=== PATIENT | female | born 1995 | race African-American/Black ===

== ENCOUNTER 2016-10-09 12:52 | Emergency (ER) | payer BC, OTHER ==
[~2016-10-09] VITALS: Ht 170.2 cm; Wt 89.4 kg
[2016-10-09 13:44] VITALS: BP 142/72
[2016-10-09] MEDS ORDERED: DIPHTH,PERTUSS(ACELL),TET TOX 0.5 ML DISP.SYRIN. VAX IM ONE (14:30)
[2016-10-09] MEDS ORDERED: LIDOCAINE 1% / SOD BICARB 8.4% 20 ML VIAL. IJ ONE (14:30)
[2016-10-09] MEDS ORDERED: HYDROCODONE/APAP 5/325MG TABLET. PO ONE (14:30)
[2016-10-09] MEDS ORDERED: HYDR-971 PO (15:33)
[2016-10-09] MEDS ORDERED: CLIN-44 PO (15:33)
--- NOTE | 2016-10-09 15:33 | PHYS DOC ---
Past Medical History Past Medical History: Other Additional Past Medical Histor: MRSA on arms and legs in 2011 Past Surgical History: Tonsillectomy, Other Additional Past Surgical Histo: "Surgery on my MRSA." Alcohol Use: None Drug Use: None Adult General Chief Complaint Chief Complaint: ABSCESS HPI HPI Patient is a 20 year old female with history of abscesses who presents today with a left axillary abscess for 2 weeks. Patient states it started draining today. Denies any fever. Review of Systems Review of Systems Constitutional: Denies fever or chills [] Eyes: Denies change in visual acuity, redness, or eye pain [] HENT: Denies nasal congestion or sore throat [] Musculoskeletal: Denies back pain or joint pain [] Integument: left axillary abscess Neurologic: Denies headache, focal weakness or sensory changes [] Endocrine: Denies polyuria or polydipsia [] Current Medications Current Medications Current Medications Medications (Trade) Dose Ordered Sig/Norberto Start Time Stop Time Status Last Admin Dose Admin Acetaminophen/ Hydrocodone Bitart (Lortab 5/325) 2 tab 1X ONCE 10/09/16 14:30 10/09/16 14:32 DC 10/09/16 14:39 2 TAB Diphtheria/ Tetanus/Acell Pertussis (Boostrix) 0.5 ml ONCE ONCE 10/09/16 14:30 10/09/16 14:32 DC 10/09/16 14:40 0.5 ML Lidocaine/Sodium Bicarbonate (Buffered Lidocaine 1%) 20 ml 1X ONCE 10/09/16 14:30 10/09/16 14:32 DC 10/09/16 14:41 20 ML Allergies Allergies Allergies Coded Allergies Type Severity Reaction Last Updated Verified No Known Drug Allergies 10/09/16 No Physical Exam Physical Exam Constitutional: Well developed, well nourished, no acute distress, non-toxic appearance. [] HENT: Normocephalic, atraumatic, bilateral external ears normal, oropharynx moist, no oral exudates, nose normal. [] Eyes: PERRLA, EOMI, conjunctiva normal, no discharge. [] Skin: left axilla with an abscess approximately 3 x 2 cm. The area is warm tender to touch, fluctuant and draining Back: No tenderness, no CVA tenderness. [] Extremities: No tenderness, no cyanosis, no clubbing, ROM intact, no edema. [] Neurologic: Alert and oriented X 3, normal motor function, normal sensory function, no focal deficits noted. [] Psychologic: Affect normal, judgement normal, mood normal. [] Current Patient Data Vital Signs Vital Signs Date Time Temp Pulse Resp B/P Pulse Ox O2 Delivery O2 Flow Rate FiO2 10/09/16 13:44 98.8 95 18 100 Room Air 98.8 EKG EKG [] Radiology/Procedures Radiology/Procedures Indication: left axilla abscess Procedure: The patient was positioned appropriately. Local anesthesia was 1% of buffered lidocaine. An incision with 11 blade was then made over the apex of the lesion and large amount of yellow purulent bloody material was expressed. The drainage cavity was irrigated and packed with sterile gauze. The patients tetanus status updated as needed. The patient tolerated the procedure well. Complications: none.[] Course & Med Decision Making Course & Med Decision Making Pertinent Labs and Imaging studies reviewed. (See chart for details) Patient has left axilla abscess which was drained as noted in procedures. The abscess was packed. Tetanus was updated. Discharged with clindamycin. Follow-up with the ED in 2 days for wound check. Dragon Disclaimer Dragon Disclaimer This electronic medical record was generated, in whole or in part, using a voice recognition dictation system. Departure Departure Impression: Primary Impression: Abscess of axilla, left Disposition: 01 HOME, SELF-CARE Condition: STABLE Referrals: NO PCP (PCP) Follow-up with the ED in 2 days for wound check Patient Instructions: Abscess, [id number] Additional Instructions: You have an abscess to the left axilla which was drained. We did put packing in the abscess. Come back in 2 days and will take the packing out. Take antibiotics as prescribed. Come back to the ED at any point symptoms worsen especially if you have a fever. Scripts Hydrocodone/Apap 5-325 ([place] 5-325 Tablet)1 Each Tablet1-2 Tab PO Q4-6HRS #20 TAB Prov:BJ FELIPE APRN 10/09/16 Clindamycin Hcl 150 Mg Capsule3 Cap PO TID #90 CAP Prov:BJ FELIPE APRN 10/09/16 BJ FELIPE APRN Oct 09, 2016 15:33
== END 2016-10-09 15:42 | disposition home or self-care (01) ==
LOC: ER 12:52
DX: L02.412 Cutaneous abscess of left axilla (principal); Z86.14 Personal history of Methicillin resistant Staphylococcus aureus infection; Z98.890 Other specified postprocedural states
CPT/HCPCS: 10060; 90471; 90715; 99283-25

== ENCOUNTER 2018-09-22 11:16 | Emergency (ER) | payer BC, OTHER ==
[~2018-09-22] VITALS: Ht 170.2 cm; Wt 104.3 kg
[~2018-09-22 11:16] MED LIST: CLIN150C14 PO; HYDR-3164 PO
[2018-09-22 11:52] VITALS: BP 126/78
[2018-09-22] MEDS ORDERED: SULF1TAB24 PO (12:08)
--- NOTE | 2018-09-22 12:09 | PHYS DOC ---
Past Medical History Past Medical History: Other Additional Past Medical Histor: MRSA on arms and legs in 2011, HS Past Surgical History: Tonsillectomy, Other Additional Past Surgical Histo: "Surgery on my MRSA." Alcohol Use: None Drug Use: None Adult General Chief Complaint Chief Complaint: ABSCESS HPI HPI Patient is a 22 year old female who presents with an abscess to left axilla that has been worsening x 2 days. She has a history of hidradenitis suppurativa. She denies fever, nausea or vomiting. Review of Systems Review of Systems Constitutional: Denies fever or chills [] Respiratory: Denies cough or shortness of breath [] Cardiovascular: No additional information not addressed in HPI [] GI: Denies abdominal pain, nausea, vomiting, bloody stools or diarrhea [] : Denies dysuria or hematuria [] Musculoskeletal: Denies back pain or joint pain [] Integument: See HPI Neurologic: Denies headache, focal weakness or sensory changes [] Endocrine: Denies polyuria or polydipsia [] All other systems were reviewed and found to be within normal limits, except as documented in this note. Allergies Allergies Allergies Coded Allergies Type Severity Reaction Last Updated Verified No Known Drug Allergies 10/09/16 No Physical Exam Physical Exam Constitutional: Well developed, well nourished, no acute distress, non-toxic appearance. [] Cardiovascular:Heart rate regular rhythm, no murmur [] Lungs & Thorax: Bilateral breath sounds clear to auscultation [] Abdomen: Bowel sounds normal, soft, no tenderness, no masses, no pulsatile ma sses. [] Skin: 1 cm area of induration to left axilla, no fluctuance Back: No tenderness, no CVA tenderness. [] Extremities: No tenderness, no cyanosis, no clubbing, ROM intact, no edema. [] Neurologic: Alert and oriented X 3, normal motor function, normal sensory function, no focal deficits noted. [] Psychologic: Affect normal, judgement normal, mood normal. [] Current Patient Data Vital Signs EKG EKG [] Radiology/Procedures Radiology/Procedures [] Course & Med Decision Making Course & Med Decision Making Pertinent Labs and Imaging studies reviewed. (See chart for details) [] Dragon Disclaimer Dragon Disclaimer This electronic medical record was generated, in whole or in part, using a voice recognition dictation system. Departure Departure Impression: Primary Impression: Abscess of axilla, left Disposition: 01 HOME, SELF-CARE Condition: STABLE Referrals: NO PCP (PCP) Patient Instructions: Abscess Additional Instructions: Take the medication as directed. Pump and dump your breast milk while on this medication. Follow-up with your primary care provider in one week if not improving or return to the emergency department if worsening. Use hot compresses multiple times daily to encourage drainage. Scripts Sulfamethoxazole/Trimethoprim (BACTRIM DS TABLET) 1 Each Tablet 1 TAB PO BID for abscess, #20 TAB Prov: REJI FOY APRN 09/22/18 REJI FOY APRN Sep 22, 2018 12:09
== END 2018-09-22 12:18 | disposition home or self-care (01) ==
LOC: ER 11:16
DX: L02.412 Cutaneous abscess of left axilla (principal); Z90.89 Acquired absence of other organs
CPT/HCPCS: 99283

== ENCOUNTER 2019-09-08 17:33 | Emergency (ER) | payer BC ==
[~2019-09-08] VITALS: Ht 170.2 cm; Wt 111.0 kg
[~2019-09-08 17:33] MED LIST changes: +SULF1TAB24 PO
[2019-09-08 17:55] VITALS: BP 120/66
--- NOTE | 2019-09-08 18:07 | PHYS DOC ---
Past Medical History Past Medical History: Other Additional Past Medical Histor: MRSA on arms and legs in 2011, HS Past Surgical History: Tonsillectomy, Other Additional Past Surgical Histo: "Surgery on my MRSA." Smoking Status: Light Tobacco Smoker Alcohol Use: None Drug Use: None Adult General Chief Complaint Chief Complaint: ABDOMINAL PAIN HPI HPI Patient is a 23 year old AA female who presents to the emergency department with complaints of pelvic pain, bilateral low back pain, dysuria, increased urinary frequency, and irregular light brown vaginal discharge. She states that the vaginal discharge began 5 days ago and her urinary symptoms began a week ago. She denies any vomiting, hematuria, cough, shortness of breath, wheezing, or headache. Patient states she has had nausea and had one episode of diarrhea earlier today. She states that her lower abdomen feels like it is bloated. Patient reports having chills but denies having any fever. She currently rates her pain a 6 out of 10 on the pain scale, she denies any alleviating factors. Patient reports that her last menstrual cycle was on August 242019. Review of Systems Review of Systems Complete ROS is negative unless otherwise noted in HPI. Allergies Allergies Allergies Coded Allergies Type Severity Reaction Last Updated Verified No Known Drug Allergies 10/09/16 No Physical Exam Physical Exam See Above Constitutional: Well developed, well nourished, no acute distress, non-toxic appearance, obese. [] HENT: Normocephalic, atraumatic, bilateral external ears normal, nose normal. [] Eyes: PERRLA, EOMI, conjunctiva normal, no discharge. [] Neck: Normal range of motion, no stridor. 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 Back: No tenderness Extremities: No cyanosis, ROM intact, no edema. Neurologic: Alert and oriented X 3, no focal deficits noted. Psychologic: Affect normal, judgement normal, mood normal. Current Patient Data Vital Signs Vital Signs Date Time Temp Pulse Resp B/P (MAP) Pulse Ox O2 Delivery O2 Flow Rate FiO2 09/08/19 17:55 98.4 108 16 120/66 (84) 99 Room Air 98.4 Lab Values Laboratory Tests Test 09/08/19 17:55 09/08/19 18:01 Urine Collection Type Unknown Urine Color [place] Urine Clarity Clear Urine pH 6.5 (<5.0-8.0) Urine Specific [place] 1.020 (1.000-1.030) Urine Protein Negative mg/dL (NEG-TRACE) Urine Glucose (UA) Negative mg/dL (NEG) Urine Ketones (Stick) Negative mg/dL (NEG) Urine Blood Negative (NEG) Urine Nitrite Positive (NEG) Urine Bilirubin Negative (NEG) Urine Urobilinogen Dipstick 1.0 mg/dL (0.2 mg/dL) Urine Leukocyte Esterase Small (NEG) Urine RBC 0 /HPF (0-2) Urine WBC 1-4 /HPF (0-4) Urine Squamous Epithelial Cells Mod /LPF Urine Bacteria 0 /HPF (0-FEW) Urine Mucus Slight /LPF POC Urine HCG, Qualitative Hcg negative (Negative) Microbiology 09/08/19 Wet Prep - Final, Complete EKG EKG [] Radiology/Procedures Radiology/Procedures [] Course & Med Decision Making Course & Med Decision Making Pertinent Labs and Imaging studies reviewed. (See chart for details) Patient is a 23-year-old female who presented with complaints of irregular vaginal discharge, dysuria, increased urinary frequency, and suprapubic pain. UA was positive for nitrites, wet mount was concerning for bacterial vaginosis. Patient was given prescriptions for Keflex and Flagyl. Abdomen was soft and nontender on exam, patient declined blood work. Patient was encouraged to follow-up with her primary care doctor if symptoms persist, return to the ER if symptoms worsen or she develops a fever. Patient verbalized an understanding of home care, medications, follow-up, and return to ED instructions and was in agreement with the plan of care. [] Dragon Disclaimer Dragon Disclaimer This electronic medical record was generated, in whole or in part, using a voice recognition dictation system. Departure Departure Impression: Primary Impression: UTI (urinary tract infection) Additional Impression: Bacterial vaginosis Disposition: HOME, SELF-CARE Condition: STABLE Referrals: ANASTASIIA PHILLIP MD (PCP) Patient Instructions: Bacterial Vaginosis, [id number], Urinary Tract Infection, [id number] Additional Instructions: Fill prescription(s) and use as directed. Avoid bladder irritants such as caffeine, carbonation, and spicy foods. Increase clear fluids. Gonorrhea and chlamydia test results are pending. Follow-up with your primary care doctor if symptoms persist, return to ER symptoms worsen. Scripts Metronidazole (FLAGYL) 500 Mg Tablet 1 TAB PO BID, #14 TAB 0 Refills Prov: ZIYAD AGUIRRE APRN 09/08/19 Cephalexin (KEFLEX) 500 Mg Capsule 500 MG PO BID for 7 Days, #14 CAP 0 Refills Prov: ZIYAD AGUIRRE APRN 09/08/19 Problem Qualifiers Primary Impression: UTI (urinary tract infection) Urinary tract infection type: site unspecified Hematuria presence: without hematuria Qualified Codes: N39.0 - Urinary tract infection, site not specified ZIYAD AGUIRRE APRN Sep 08, 2019 18:06
[2019-09-08 18:28] LABS: BILIRUBIN,URINE NEGATIVE (NEG); CLARITY,URINE CLEAR; COLOR,URINE AMBER; NITRITE,URINE POSITIVE (NEG); PH,URINE 6.5 (<5.0-8.0); PROTEIN,URINE NEGATIVE (NEG-TRACE)
[2019-09-08 18:43] LABS: BACTERIA,URINE 0 /HPF (0-FEW); RBC,URINE 0 /HPF (0-2); SQUAMOUS EPITHELIAL CELL,UR MOD /LPF
[2019-09-08] MEDS ORDERED: CEPH-264 PO (19:16)
[2019-09-08] MEDS ORDERED: METR500T PO (19:16)
[2019-09-12 13:11] LABS: GC PROBE Negative (Negative)
== END 2019-09-08 19:22 | disposition home or self-care (01) ==
LOC: ER 17:33
DX: N39.0 Urinary tract infection, site not specified (principal); N76.0 Acute vaginitis; R11.0 Nausea; R19.7 Diarrhea, unspecified; M54.5 Low back pain; R10.2 Pelvic and perineal pain; F17.200 Nicotine dependence, unspecified, uncomplicated; Z90.89 Acquired absence of other organs; Z98.890 Other specified postprocedural states
CPT/HCPCS: 81001; 81025; 87086; 87491; 87591; 99284; Q0111

== ENCOUNTER 2020-01-15 12:28 | Emergency (ER) | payer BC ==
[~2020-01-15] VITALS: Ht 170.2 cm; Wt 110.0 kg
[~2020-01-15 12:28] MED LIST changes: +CEPH-264 PO; +METR500T PO
[2020-01-15 13:01] VITALS: BP 166/86
[2020-01-15] MEDS ORDERED: LIDOCAINE 1%/EPI 1:100,000 20 ML VIAL. SQ ONE (14:30)
[2020-01-15] MEDS ORDERED: HYDROcodone/APAP 5/325MG 1 TAB TABLET PO ONE (14:30)
[2020-01-15] MEDS ORDERED: CLIN150C14 PO (15:29)
[2020-01-15] MEDS ORDERED: HYDR-2761 PO (15:29)
--- NOTE | 2020-01-15 15:30 | PHYS DOC ---
Past Medical History Past Medical History: Other Additional Past Medical Histor: MRSA on arms and legs in 2011, HS Past Surgical History: Tonsillectomy, Other Additional Past Surgical Histo: "Surgery on my MRSA." Smoking Status: Current Every Day Smoker Alcohol Use: Occasionally Drug Use: None General Adult EDM: Chief Complaint: ABSCESS HPI: HPI: Patient is a 24 year old AA female, accompanied by her sister, who presents to the emergency department with complaints of pressure and pain at the top of her gluteal cleft for the last 4 days. Patient reports a history of pilonidal abscesses. She states that the area has been draining foul-smelling pus for the last 2 days and she is concerned that another abscess has developed. She denies any fever, abdominal pain, nausea, vomiting, diarrhea, or injury. She currently rates the pain a 7 out of 10 on the pain scale, the pain increases with sitting and pressure she denies radiation of the pain. Review of Systems: Review of Systems: Constitutional: Denies fever or chills. [] GI: Denies abdominal pain, nausea, vomiting, bloody stools or diarrhea. [] : Denies dysuria. [] Musculoskeletal: Denies back pain or joint pain. [] Integument: See HPI Neurologic: Denies headache Psychiatric: Denies depression or anxiety. [] Heart Score: Risk Factors: Risk Factors: DM, Current or recent (<one month) smoker, HTN, HLP, family history of CAD, obesity. Risk Scores: Score 0 - 3: 2.5% MACE over next 6 weeks - Discharge Home Score 4 - 6: 20.3% MACE over next 6 weeks - Admit for Clinical Observation Score 7 - 10: 72.7% MACE over next 6 weeks - Early Invasive Strategies Current Medications: Current Medications Medications (Trade) Dose Ordered Sig/Norberto Start Time Stop Time Status Last Admin Dose Admin Acetaminophen/ Hydrocodone Bitart (Lortab 5/325) 1 tab 1X ONCE 01/15/20 14:30 01/15/20 14:31 DC 01/15/20 14:52 1 TAB Lidocaine/ Epinephrine (LIDOCAINE 1%-EPI 1:100,000 Multi-Dose) 20 ml 1X ONCE 01/15/20 14:30 01/15/20 14:31 DC Allergies: Allergies: Allergies Coded Allergies Type Severity Reaction Last Updated Verified No Known Drug Allergies 10/09/16 No Physical Exam: PE: Constitutional: Well developed, well nourished, no acute distress, non-toxic appearance. [] HENT: Normocephalic, atraumatic, bilateral external ears normal, oropharynx moist, no oral exudates, nose normal. [] Eyes: PERRLA, EOMI, conjunctiva normal, no discharge. [] Neck: Normal range of motion, no tenderness, supple, no stridor. [] Cardiovascular:Heart rate regular rhythm, no murmur [] Lungs & Thorax: Bilateral breath sounds clear to auscultation [] Abdomen: Bowel sounds normal, soft, no tenderness, no masses, no pulsatile masses. [] Skin: Warm, dry, no erythema, no rash. [] Back: No tenderness, no CVA tenderness. [] Extremities: No tenderness, no cyanosis, no clubbing, ROM intact, no edema. [] Neurologic: Alert and oriented X 3, normal motor function, normal sensory function, no focal deficits noted. [] Psychologic: Affect normal, judgement normal, mood normal. [] Current Patient Data: Vital Signs: Vital Signs Date Time Temp Pulse Resp B/P (MAP) Pulse Ox O2 Delivery O2 Flow Rate FiO2 01/15/20 13:01 98.6 95 16 166/86 (112) 99 Room Air 98.6 EKG: EKG: [] Radiology/Procedures: Radiology/Procedures: Indication: abscess Procedure: The patient was positioned appropriately. Local anesthesia was 1% lidocaine with epi. An incision was then made over the apex of the lesion using an 11 blade scalpel and a copious amount of foul-smelling purulent drainage was expressed. The drainage cavity was then packed with iodoform gauze. The patient tolerated the procedure well, minimal blood loss Complications: none.[] Course & Med Decision Making: Course & Med Decision Making Pertinent Labs and Imaging studies reviewed. (See chart for details) [] Dragon Disclaimer: Dragon Disclaimer: This electronic medical record was generated, in whole or in part, using a voice recognition dictation system. Departure Departure Impression: Primary Impression: Pilonidal abscess Disposition: 01 HOME, SELF-CARE Condition: STABLE Referrals: DENISE RIZVI MD Patient Instructions: Abscess, Care After, Pilonidal Cyst, Care After Additional Instructions: Fill the prescription(s) and use as directed. You may take tylenol or ibuprofen as needed for pain. Return to the emergency room in 2 days to have the packing removed. Follow up with Dr. Rizvi for further evaluation and treatment of reoccurring problem. Return to the ER sooner if your symptoms worsen. Scripts Hydrocodone Bit/Acetaminophen (HYDROCODONE-APAP 5-325 ) 1 Tab Tablet 1 TAB PO PRN Q6HRS PRN for PAIN for 3 Days, #12 TAB 0 Refills Prov: ZIYAD AGUIRRE APRN 01/15/20 Clindamycin Hcl (CLINDAMYCIN HCL) 150 Mg Capsule 300 MG PO TID for 7 Days, #42 CAP 0 Refills Prov: ZIYAD AGUIRRE APRN 01/15/20 Justicifation of Admission Dx: Justifications for Admission: Justification of Admission Dx: N/A ZIYAD AGUIRRE APRN Jan 15, 2020 15:30
== END 2020-01-15 15:49 | disposition home or self-care (01) ==
LOC: ER 12:28
DX: L05.01 Pilonidal cyst with abscess (principal); Z86.14 Personal history of Methicillin resistant Staphylococcus aureus infection; F17.200 Nicotine dependence, unspecified, uncomplicated
CPT/HCPCS: 10080; 99283; J3490

== ENCOUNTER 2020-01-17 11:00 | Emergency (ER) | payer BC ==
[~2020-01-17] VITALS: Ht 170.2 cm; Wt 109.0 kg
[~2020-01-17 11:00] MED LIST changes: +HYDR-2761 PO
[2020-01-17 12:33] VITALS: BP 127/56
--- NOTE | 2020-01-17 12:44 | PHYS DOC ---
Past Medical History Past Medical History: Other Additional Past Medical Histor: MRSA on arms and legs in 2011, HS Past Surgical History: Tonsillectomy, Other Additional Past Surgical Histo: "Surgery on my MRSA." Smoking Status: Current Every Day Smoker Alcohol Use: Occasionally Drug Use: None General Adult EDM: Chief Complaint: WOUND RECHECK/SUTURE REMOVAL HPI: HPI: Patient is a 24-year-old female who had a recent pilonidal incision and drainage with packing placed. She returns today to have the packing removed. [] Review of Systems: Review of Systems: Constitutional: Denies fever or chills. [] Eyes: Denies change in visual acuity. [] HENT: Denies nasal congestion or sore throat. [] Respiratory: Denies cough or shortness of breath. [] Cardiovascular: Denies chest pain or edema. [] GI: Denies abdominal pain, nausea, vomiting, bloody stools or diarrhea. [] : Denies dysuria. [] Musculoskeletal: Denies back pain or joint pain. [] Integument: Per HPI. [] Neurologic: Denies headache, focal weakness or sensory changes. [] Endocrine: Denies polyuria or polydipsia. [] Lymphatic: Denies swollen glands. [] Psychiatric: Denies depression or anxiety. [] Heart Score: Risk Factors: Risk Factors: DM, Current or recent (<one month) smoker, HTN, HLP, family history of CAD, obesity. Risk Scores: Score 0 - 3: 2.5% MACE over next 6 weeks - Discharge Home Score 4 - 6: 20.3% MACE over next 6 weeks - Admit for Clinical Observation Score 7 - 10: 72.7% MACE over next 6 weeks - Early Invasive Strategies Allergies: Allergies: Allergies Coded Allergies Type Severity Reaction Last Updated Verified No Known Drug Allergies 10/09/16 No Physical Exam: PE: Constitutional: Well developed, well nourished, no acute distress, non-toxic appearance. [] HENT: Normocephalic, atraumatic, bilateral external ears normal, oropharynx moist, no oral exudates, nose normal. [] Eyes: PERRLA, EOMI, conjunctiva normal, no discharge. [] Neck: Normal range of motion, no tenderness, supple, no stridor. [] Cardiovascular:Heart rate regular rhythm, no murmur [] Lungs & Thorax: Bilateral breath sounds clear to auscultation [] Abdomen: Bowel sounds normal, soft, no tenderness, no masses, no pulsatile masses. [] Skin: Surgical wound with packing in place in the superior gluteal cleft. [] Back: No tenderness, no CVA tenderness. [] Extremities: No tenderness, no cyanosis, no clubbing, ROM intact, no edema. [] Neurologic: Alert and oriented X 3, normal motor function, normal sensory function, no focal deficits noted. [] Psychologic: anxious [] EKG: EKG: [] Radiology/Procedures: Radiology/Procedures: [] Course & Med Decision Making: Course & Med Decision Making Pertinent Labs and Imaging studies reviewed. (See chart for details) [Procedure: Packing removal Wound was identified packing was removed without difficulty the wound appears to be healing nicely] Dragon Disclaimer: Dragon Disclaimer: This electronic medical record was generated, in whole or in part, using a voice recognition dictation system. Departure Departure Impression: Primary Impression: Abscess packing removal Disposition: 01 HOME, SELF-CARE Condition: IMPROVED Referrals: ANASTASIIA PHILLIP MD (PCP) Patient Instructions: Abscess, Care After, Pilonidal Cyst, Care After Additional Instructions: Return to the emergency department with any new or concerning symptoms Justicifation of Admission Dx: Justifications for Admission: Justification of Admission Dx: BUDDY Montez DO Jan 17, 2020 12:44
== END 2020-01-17 12:52 | disposition home or self-care (01) ==
LOC: ER 11:00
DX: L05.01 Pilonidal cyst with abscess (principal); F17.200 Nicotine dependence, unspecified, uncomplicated; Z86.14 Personal history of Methicillin resistant Staphylococcus aureus infection; Z98.890 Other specified postprocedural states
CPT/HCPCS: 99281